=== PATIENT | female | born 1965 | race Caucasian/White ===

== ENCOUNTER → 2017-06-01 | Outpatient (CLI) | payer BC ==
--- NOTE | 2017-06-02 11:30 | REP ---
Left clavicle series: Two views. History: Clavicle and shoulder injury. Findings: AP and tube angled views of the left clavicle demonstrate normal alignment of the glenohumeral and acromioclavicular joints. Medial clavicle and manubrial clavicular joint appear normal. No fracture is seen. Impression: No acute bony abnormality. Signed by Be Isbell MD 06/02/2017 09:37 A
== END ==
LOC: M WUC 16:51
PROVIDERS: ATTEND Physician Assistant
DX: M25.512 Pain in left shoulder (principal)

== ENCOUNTER → 2017-06-29 | Outpatient (CLI) | payer BC ==
--- NOTE | 2017-06-29 11:59 | REP ---
MR CERVICAL SPINE WITHOUT CONTRAST: HISTORY: Neck and left shoulder pain. A disc bulge is present at the C3-4 level. There is minimal effacement of the thecal sac without spinal cord compression. Uncinate process hypertrophy is present on the left. This produces minimal narrowing of the left C3 neural foramen. The right C3 neural foramen is patent. A disc bulge with associated osteophyte formation is present at the C4-5 level. There is moderate effacement of the thecal sac without spinal cord compression. Uncinate process hypertrophy is present on the left. This produces moderate narrowing of the left C4 neural foramen. The right C4 neural foramen is patent. A disc bulge with associated osteophyte formation is present at the C5-6 level. There is moderate effacement of the thecal sac without spinal cord compression. Bilateral uncinate process hypertrophy is present. This produces moderate and mild narrowing of the right and left C5 neural foramina respectively. A disc bulge with associated osteophyte formation is present at the C6-7 level. There is moderate effacement of the thecal sac without spinal cord compression. Bilateral uncinate process hypertrophy is present. This produces mild narrowing of the C6 neural foramina. There is no other disc bulge or herniation. The remaining neural foramina are patent. The spinal cord is normal in signal intensity. The C4-5 through C6-7 intervertebral discs are decreased in height consistent with disc degeneration. Normal signal intensity is present in the cervical vertebral bodies. IMPRESSION: There is cervical spondylosis at the C3-4 through C6-7 levels without spinal cord compression. Signed by Lavon Koehler MD 06/29/2017 12:02 P
--- NOTE | 2017-07-01 09:27 | REP ---
MRI LEFT SHOULDER: TECHNIQUE: Axial T2 fat sat, gradient echo, sagittal oblique T2 fat sat, coronal oblique T1, T2 fat sat. Supraspinatus tendon demonstrates ill-defined high signal on T2-weighted images compatible with mild tendinopathy/tendinitis. No rotator cuff tendon tear is seen. There are mild hypertrophic degenerative changes of acromioclavicular joint with downward sloping with the acromion. The acromion is type 1. Biceps tendon is within the bicipital groove with no tenosynovitis. There is no Hill-Sachs deformity. Deltoid muscle demonstrates no abnormal signal. Biceps labral complex is intact. No labral tear is seen. There is no occult fracture or significant marrow edema. There is no joint effusion. There is no paralabral cyst. IMPRESSION: Mild hypertrophic degenerative changes acromioclavicular joint with downward sloping of the acromion. Mild supraspinatus tendinopathy/tendinitis. No rotator cuff tear or labral tear. Signed by Narayan Salamanca MD 07/01/2017 12:43 P
== END ==
LOC: M RAD 09:34
PROVIDERS: ATTEND Orthopaedic Surgery
DX: M47.892 Other spondylosis, cervical region (principal)

== ENCOUNTER → 2017-07-24 | Outpatient (CLI) | payer BC ==
--- NOTE | 2017-08-15 01:31 | ECWPNPC ---
PATIENT NAME: KATHE CHILDERS : 1965 GENDER: FEMALE VISIT DATE: 07/24/2017 DISCHARGE DATE: 07/24/17 1437 VISIT LOCKED DATE TIME: PHYSICIAN: LUZ GARCIA RESOURCE: LUZ GARCIA REASON FOR APPOINTMENT 1. NECK AND SHOULDER HISTORY OF PRESENT ILLNESS FALL RISK SCREENING: SCREENING :NO FALLS IN THE PAST YEAR 51 Y/O PATIENT WITH A HISTORY OF NECK AND SHOULDER PAIN. PATIENT DESCRIBES THE PAIN TODAY ACHING, BURNING, SHARP, STABBING, TENDER, THROBBING, SORE, SHOOTING AND COMES AND GOES WITH A PAIN SCORE OF 9/10. PATIENT STATES THAT THE INCIDENT HAPPENED WHILE SHE WAS WALKING HER DOG WITH HER ON 06/04 WHILE WALKING ON A SLICK SIDEWALK. PATIENT DENIES UNEXPLAINABLE WEIGHT LOSS, FEVER, CHILLS, NEW CHANGES ON HER URINARY OR BOWEL CONTROL. PAIN SCREENING: PATIENT HAS A COMPLAINT OF ACUTE OR CHRONIC PAIN :YES CURRENT MEDICATIONS TAKING XANAX 1 MG TABLET 1 TABLET ORALLY 1QAM, /2@NOON,2QEVE TAKING PROZAC 40 MG CAPSULE 1 CAPSULE ORALLY ONCE A DAY TAKING ASPIR-81 81 MG TABLET DELAYED RELEASE 2 TABLET ORALLY ONCE A DAY TAKING VITAMIN B-12 1000 MCG TABLET 1 1/2 TABLET ORALLY ONCE A DAY TAKING VITAMIN D 1000 UNIT CAPSULE 1 CAPSULE ORALLY ONCE A DAY TAKING PHYTOSTEROL COMPLEX 500 MG CAPSULE ORALLY TAKING CYCLOBENZAPRINE HCL 10 MG TABLET 1 TABLET NEEDED ORALLY THREE TIMES A DAY MEDICATION LIST REVIEWED AND RECONCILED WITH THE PATIENT PAST MEDICAL HISTORY ANXIETY ALLERGIES ALBUTEROL: SYNCOPE: ALLERGY SULFA: NAUSEA/VOMITING: ALLERGY GUAFENISIN: HALLUCINATIONS: ALLERGY SURGICAL HISTORY GUMGRAFT 2015 ARTHROSCOPY LEFT KNEE 1985 ENDOSCOPY 2000 FAMILY HISTORY FATHER: ALIVE MOTHER: 50 YRS, DIAGNOSED WITH DIABETES 1 BROTHER(S) , 1 SISTER(S) - HEALTHY. SISTER NECK BACK AND HIP PROBLEMS. SOCIAL HISTORY GENERAL: TOBACCO USE ARE YOU A:NONSMOKER LUNG CANCER SCREENING SMOKING STATUS:NON SMOKER [facility] [id number] OTHER LANGUAGE LANGUAGES SPOKEN:ESTONIAN EDUCATION LEVEL OF EDUCATION:FINISHED [facility] PFS, CLERGY, PUBLIC HEALTH REFERRALS HAS THE PATIENT BEEN EDUCATED REGARDING HIS/HER PLAN OF CARE?NO HAS THE PATIENT BEEN EDUCATED REGARDING PAIN, THE RISK FOR PAIN, THE IMPORTANCE OF EFFECTIVE PAIN MANAGEMENT, AND THE PAIN ASSESSMENT PROCESS?NO ADVANCE DIRECTIVES HEALTH CARE PROXY?NO DO YOU HAVE A DNR?NO LIVING WILL?NO POWER OF BOTTOMER OPERATOR?NO HOSPITALIZATION/MAJOR DIAGNOSTIC PROCEDURE CONCUSION 2014 REVIEW OF SYSTEMS REVIEWED BY: PROVIDER: LUZ GARCIA MD . CONSTITUTIONAL: ANY CHANGE IN YOUR MEDICAL CONDITION? NO, PT STATES SHE SAW DR BANEGAS ([facility]OP[facility], [place]), WAS SEEN EARLIER BY DR CASTILLO, MRI'S DONE THEN SHE COULDN'T GET BACK IN TO SEE HIM SO SHE WENT TO [place], WHERE SHE WAS TOLD SHE MAY HAVE A TORN ROTATOR CUFF, LEFT. MRI'S DONE CERVICAL SHOULDER DONE AT [facility]. WRIST AT [facility] . CHILLS NO . FEVER NO . INFECTION: DO YOU HAVE NEW INFECTIONS? NO . DO YOU HAVE HISTORY OF MRSA? NO . MUSCULOSKELETAL: ANY NEW PATTERNS OF PAIN OR NUMBNESS? YES, PT C/O PAIN AND NUMBNESS WORSENED SINCE FALL . SYTEMIC LUPUS NO . GASTROENTEROLOGY: ANY NEW CHANGE IN BOWEL CONTROL? YES, PT C/O SLIGHT CONSTIPATION S/P FALL . BARRETTS ESOPHAGUS NO . CIRRHOSIS NO . HEPATITIS NO . LIVER FAILURE NO . ACID REFLUX NO . UNEXPLAINED WEIGHT LOSS NO . GENITOURINARY: ANY NEW CHANGE IN BLADDER CONTROL? NO . IS THERE A CHANCE YOU COULD BE ? NO . HEMATOLOGY/LYMPH: DO YOU TAKE ANY BLOOD THINNERS? (FOR EXAMPLE- COUMADIN, PLAVIX, AGGRENOX, PLATEL, PRADAXA, OR XARELTO) NO . WHEN WAS YOUR LAST DOSE? DATE: TIME: . LOW PLATELET COUNT NO . SICKLE CELL DISEASE NO . VON WILLIEBRANDS NO . FACTOR V LEIDEN NO . THALLASEMIA NO . ANEMIA NO . EASY BRUISING NO . NEUROLOGY: HAVE YOU FALLEN IN THE PAST 6 MONTHS? YES, PT STATES SHE FELL IN MAY 2017 WALKING OUTSIDE WITH DOGS ON LEASH. SLIPPED ON WET SLIPPERY GRASS LANDED ON LEFT HAND, LEFT ELBOW AND ROLLED ON LEFT SHOULDER AND LEFT HIP. PT RETURNED TO WORK THE NEXT DAY, BUT WENT TO URGENT CARE THE FOLLOWING WEEKEND FOR BRONCHITIS AND LEFT ARM WAS ADDRESSED AT THIS VISIT. . ANY NEW EXTREMITY NUMBNESS OR WEAKNESS? NO . HEAD INJURY NO . DEMENTIA NO . CEREBRAL PALSY NO . MULTIPLE SCLEROSIS NO . DIZZINESS NO . HEADACHE NO . STROKES NO . VERTIGO NO . CARDIOLOGY: DO YOU HAVE A PACEMAKER OR DEFIBRILLATOR? NO . ANGINA NO . HEART ATTACK NO . HEART SURGERY NO . CONGESTIVE HEART FAILURE/FLUID OVERLOAD NO . CHEST PAIN NO . HIGH BLOOD PRESSURE NO . IRREGULAR HEART BEAT NO . RESPIRATORY: HAVE YOU BEEN SICK IN THE PAST WEEK? NO . FEVER NO . FLU LIKE SYMPTOMS? NO . CPAP NO . BYPAP NO . ASTHMA NO . EMPHYSEMA NO . CHRONIC LUNG DISEASES NO . SHORTNESS OF BREATH ON EXERTION NO . COUGH NO . SNORING NO . INTEGUMENTARY: DO YOU HAVE ANY RASHES OR OPEN SORES? NO . ALLERGIC/IMMUNO: ARE YOU ALLERGIC TO SHELLFISH OR IV DYE? NO . ANY NEW ALLERGIES? NO . PSYCHIATRIC: DO YOU HAVE THOUGHTS OF HURTING YOURSELF OR SOMEONE ELSE? NO . ARE YOU ABUSED, NEGLECTED, OR IN AN UNSAFE ENVIRONMENT? NO . ENDOCRINOLOGY: ARE YOU DIABETIC? YES . THYROID DISORDER NO . OTHER: DO YOU NEED ANY PRESCRIPTIONS? NO . IF YES, PLEASE LIST: ____ . ANY NEW PROBLEMS WITH YOUR MEDICATIONS? NO . WHEN DID YOU LAST EAT? ____ . WHEN DID YOU LAST DRINK? ____ . WHAT DID YOU LAST DRINK? ____ . NAME OF PERSON DRIVING YOU HOME? ____ . DO YOU HAVE ANY OTHER QUESTIONS OR CONCERNS NO . VITAL SIGNS WT 178.0 LBS, HT 67", BMI 27.88 INDEX, BP 145/85 MM HG, HR 73 /MIN, RR 16 /MIN, TEMP 97.8 F, OXYGEN SAT % 98%, NA INITIALS TL 1308. EXAMINATION : THE PATIENT IS ALERT OX3 AND COOPERATIVE. PATIENT IS HAVING PAIN AND NUMBNESS DOWN HER LEFT ARM AND INTO HER FINGERTIPS. PATIENT IS HAVING DIFFICULTY WITH HER CLOTHING DUE TO THE WEAKNESS DOWN HER ARM. LEFT HAND JEWELRY MECHANIC IS WEAKER THAN HER RIGHT HAND JEWELRY MECHANIC. NUMBNESS IN LATERAL ASPECT HAND AND FOREARM. NECK EXTENSION 15 DEGREES, FLEXION 60 DEGREES, LATERAL TO THE RIGHT 250 DEGREES, LATERAL TO THE LEFT 260 DEGREES. EXTERNAL EXTENSION LEFT SIDE OF HEAD PATIENT HAS INCREASED SYMPTOMS DOWN HER ARM. RIGHT SIDE EXTENSION PAIN OVER NECK AREA. TENDERNESS IN THE PARASPINAL MUSCLE GROUP IN THE NECK. KNEE REFLEX 2/4 BOTH KNEES. MRI 06/29/17 CERVICAL SPONDYLOSIS AT C3-C4 THROUGH C6-C7 LEVELS WITHOUT SPINAL CORD COMPRESSION. MRI LEFT SHOULDER 06/29/17 SHOWS MILD HYPERTROPHIC DEGENERATIVE CHANGES. ASSESSMENTS NEUROPATHY - G62.9 (PRIMARY) ARM PAIN. TREATMENT OTHERS START GABAPENTIN CAPSULE, 300 MG, 1 CAPSULE, ORALLY FOR PAIN, THREE TIMES A DAY, 30 DAY(S), 90, REFILLS 1 CLINICAL NOTES: WE DISCUSSED MEDICATION MANAGEMENT AND INJECTION THERAPY. PATIENT WILL BEGIN GABAPENTIN 300 MG UP TO 3X DAILY. I DISCUSSED WITH THE PATIENT THE USE OF THIS MEDICATION. PATIENT WILL CONTINUE WITH HER PHYSICAL THERAPY AND WILL FOLLOW UP WITH HER ORTHOPEDIC SURGEON TO CHECK OPINION ON INJECTION THERAPY. PATIENT HAS TRIED ACUPUNCTURE IN THE PAST WELL AND HAS HAD SUCCESS FROM IT. PATIENT WILL HAVE A FOLLOW UP IN 1 MONTH. QUESTIONS WERE ANSWERED, INSTRUCTIONS WERE GIVEN . I, MICHAEL MCINTOSH, DOCUMENTED THE ABOVE INFORMATION ACTING A SCRIBE FOR DR. GARCIA. I HAVE REVIEWED THE ABOVE DOCUMENT, WRITTEN BY MICHAEL MCINTOSH SCRIBCrescencio AND I VERIFY THAT IT IS ACCURATE. PROCEDURE CODES G8730 PAIN ASSESS POS TOOL F/U PLAN DOC G8427 DOC MEDS VERIFIED W/PT OR RE DISPOSITION & COMMUNICATION FOLLOW UP 4 WEEKS ELECTRONICALLY SIGNED BY LUZ GARCIA MD ON 08/13/2017 AT 09:44 AM EST DISCLAIMER : THIS IS A VISIT SUMMARY EXTRACTED FROM THE [employer] CHART. IT IS NOT A COPY OF THE [employer] PROGRESS NOTE. MTDTejas
== END ==
LOC: M PAIN 11:30
PROVIDERS: ATTEND Anesthesiology
DX: G62.9 Polyneuropathy, unspecified (principal); F41.9 Anxiety disorder, unspecified; Z79.899 Other long term (current) drug therapy; Z79.82 Long term (current) use of aspirin; Z88.2 Allergy status to sulfonamides; Z88.8 Allergy status to other drugs, medicaments and biological substances; W10.1XXD Fall (on)(from) sidewalk curb, subsequent encounter; Y93.K1 Activity, walking an animal; Y99.8 Other external cause status

== ENCOUNTER → 2017-08-05 | Outpatient (REF) | payer BC | LOC: M LAB REF 13:08 | PROVIDERS: ATTEND Physician Assistant | DX: J02.9 Acute pharyngitis, unspecified (principal) ==